=== PATIENT | male | born 1945 | race Caucasian/White ===

== ENCOUNTER → 2018-10-03 14:17 | Outpatient (CLI) | payer OTHER, SELFPAY ==
[2018-10-03 15:03] LABS: Urine Amphetamines Negative (Negative); Urine Barbiturates Negative (Negative); Urine Benzodiazepines Negative (Negative); Urine Cocaine Negative (Negative); Urine MDMA Negative (Negative); Urine Methadone Negative (Negative); Urine Methamphetamines Negative (Negative); Urine Morphine/Opi cutoff 2000 Negative (Negative); Urine Oxycodone Negative (Negative); Urine Phencyclidine Negative (Negative); Urine Tetrahydrocannabinol Positive (Negative); Urine Tricyclic Antidepressant Negative (Negative)
== END ==
PROVIDERS: Visit Provider Psychiatry & Neurology Psychiatry
DX: F10.20 Alcohol dependence, uncomplicated (principal); F12.220 Cannabis dependence with intoxication, uncomplicated; F41.9 Anxiety disorder, unspecified; F90.9 Attention-deficit hyperactivity disorder, unspecified type
CPT/HCPCS: 80305

== ENCOUNTER → 2018-11-03 11:33 | Outpatient (CLI) | payer OTHER, SELFPAY ==
[2018-11-03 13:04] LABS: Urine Amphetamines Negative (Negative); Urine Barbiturates Negative (Negative); Urine Benzodiazepines Negative (Negative); Urine Cocaine Negative (Negative); Urine MDMA Negative (Negative); Urine Methadone Negative (Negative); Urine Methamphetamines Negative (Negative); Urine Morphine/Opi cutoff 2000 Negative (Negative); Urine Oxycodone Negative (Negative); Urine Phencyclidine Negative (Negative); Urine Tetrahydrocannabinol Negative (Negative); Urine Tricyclic Antidepressant Negative (Negative)
== END ==
PROVIDERS: PCP Internal Medicine; Visit Provider Psychiatry & Neurology Psychiatry
DX: F12.20 Cannabis dependence, uncomplicated (principal); F10.20 Alcohol dependence, uncomplicated; F90.9 Attention-deficit hyperactivity disorder, unspecified type
CPT/HCPCS: 80305

== ENCOUNTER → 2018-12-09 14:28 | Outpatient (CLI) | payer OTHER, SELFPAY ==
[2018-12-09 14:59] LABS: Urine Amphetamines Negative (Negative); Urine Barbiturates Negative (Negative); Urine Benzodiazepines Negative (Negative); Urine Cocaine Negative (Negative); Urine MDMA Negative (Negative); Urine Methadone Negative (Negative); Urine Methamphetamines Negative (Negative); Urine Morphine/Opi cutoff 2000 Negative (Negative); Urine Oxycodone Negative (Negative); Urine Phencyclidine Negative (Negative); Urine Tetrahydrocannabinol Negative (Negative); Urine Tricyclic Antidepressant Negative (Negative)
== END ==
PROVIDERS: PCP Internal Medicine; Visit Provider Psychiatry & Neurology Psychiatry
DX: F12.20 Cannabis dependence, uncomplicated (principal); F10.20 Alcohol dependence, uncomplicated; F41.9 Anxiety disorder, unspecified; F90.9 Attention-deficit hyperactivity disorder, unspecified type
CPT/HCPCS: 80305

== ENCOUNTER → 2018-12-23 11:26 | Outpatient (CLI) | payer OTHER, SELFPAY ==
--- NOTE | 2018-12-23 | DI.RAD.S_ITS ---
PROCEDURE: XR CHEST 2V INDICATIONS: CHEST PAIN TECHNIQUE: 2 views of the chest were acquired. COMPARISON: None. FINDINGS: Surgical changes and devices: None. Lungs and pleura: No pleural effusions or pneumothorax. A density projects to the anterior aspect of the left 6 rib at the costochondral junction, probably related to rib injury. A nodular density in the left lower lung zone is probably the nipple shadow. Mediastinum: Mediastinal contours are normal. Heart size is normal. Bones and chest wall: Soft tissues appear unremarkable. IMPRESSION: 1. No acute cardiopulmonary disease. 2. A density projects to the anterior aspect of the left 6 rib at the costochondral junction, probably related to rib injury. Followup exam or a rib series is suggested. Dictated by: Josesito Dumont M.D. on 12/23/2018 at 12:54 Approved by: Josesito Dumont M.D. on 12/23/2018 at 13:03
== END ==
PROVIDERS: PCP Internal Medicine; Visit Provider Internal Medicine
DX: R07.9 Chest pain, unspecified (principal)
CPT/HCPCS: 71046

== ENCOUNTER → 2019-01-27 10:12 | Outpatient (CLI) | payer OTHER, SELFPAY ==
[2019-01-27 11:32] LABS: Urine Amphetamines Negative (Negative); Urine Barbiturates Negative (Negative); Urine Benzodiazepines Negative (Negative); Urine Cocaine Negative (Negative); Urine MDMA Negative (Negative); Urine Methadone Negative (Negative); Urine Methamphetamines Negative (Negative); Urine Morphine/Opi cutoff 2000 Negative (Negative); Urine Oxycodone Negative (Negative); Urine Phencyclidine Negative (Negative); Urine Tetrahydrocannabinol Negative (Negative); Urine Tricyclic Antidepressant Negative (Negative)
== END ==
PROVIDERS: PCP Internal Medicine; Visit Provider Psychiatry & Neurology Psychiatry
DX: F10.20 Alcohol dependence, uncomplicated (principal); F12.20 Cannabis dependence, uncomplicated; F41.9 Anxiety disorder, unspecified; F90.9 Attention-deficit hyperactivity disorder, unspecified type
CPT/HCPCS: 80305

== ENCOUNTER → 2019-03-06 15:46 | Outpatient (CLI) | payer OTHER, SELFPAY ==
[2019-03-06 16:20] LABS: Urine Amphetamines Negative (Negative); Urine Barbiturates Negative (Negative); Urine Benzodiazepines Negative (Negative); Urine MDMA Negative (Negative); Urine Methadone Negative (Negative); Urine Methamphetamines Negative (Negative); Urine Oxycodone Negative (Negative); Urine Phencyclidine Negative (Negative); Urine Tetrahydrocannabinol Negative (Negative); Urine Tricyclic Antidepressant Negative (Negative)
[2019-04-01 16:49] LABS: Urine Cocaine Negative (Negative); Urine Morphine/Opi cutoff 2000 Positive (Negative)
== END ==
PROVIDERS: Visit Provider Psychiatry & Neurology Psychiatry
DX: F41.9 Anxiety disorder, unspecified (principal); F90.9 Attention-deficit hyperactivity disorder, unspecified type; F12.20 Cannabis dependence, uncomplicated; F10.20 Alcohol dependence, uncomplicated
CPT/HCPCS: 80305

== ENCOUNTER → 2019-03-13 14:21 | Outpatient (CLI) | payer OTHER, SELFPAY ==
--- NOTE | 2019-03-13 | DI.RAD.S_ITS ---
PROCEDURE: XR RIBS LT 2V INDICATIONS: CHEST PAIN TECHNIQUE: 3 views of the left ribs were acquired. COMPARISON: [facility], CR, XR CHEST 2V, 12/23/2018, 11:38. FINDINGS: Surgical changes and devices: None evident Bones and chest wall: Nondisplaced left 5, 6, and 7th left rib fractures are evident near the distal margins of the ribs. No additional fractures are appreciated. Incidental note is made of degenerative changes involving the left glenohumeral joint. Degenerative changes of the spine are also present, not well evaluated. No suspicious bony lesions. Overlying soft tissues appear unremarkable. Lungs and pleura: The visualized lung appears clear. No definite pleural effusions or pneumothorax are visible. IMPRESSION: Nondisplaced left 5th through 7th rib fractures. Dictated by: Cristino Montanez M.D. on 03/13/2019 at 16:06 Approved by: Cristino Montanez M.D. on 03/13/2019 at 16:08
== END ==
PROVIDERS: Visit Provider Internal Medicine
DX: R07.9 Chest pain, unspecified (principal); S22.42XA Multiple fractures of ribs, left side, initial encounter for closed fracture
CPT/HCPCS: 71046

== ENCOUNTER → 2020-06-15 14:58 | Outpatient (ROUT) | payer OTHER, SELFPAY ==
[2020-06-15 15:12] LABS: Add Manual Diff / Slide Review NO; Alanine Aminotransferase 23 IU/L (<50); Albumin 4.5 g/dL (3.5-5.0); Albumin Globulin Ratio 1.6 (1.0-2.8); Alkaline Phosphatase 72 U/L (38-126); Aspartate Aminotransferase 34 IU/L (17-59); BUN Creatinine Ratio 20.7 (6-22); Basophils Absolute Auto 100 /uL (0-100); Basophils Percent Auto 0.9 % (0-2); Bilirubin Total 0.6 mg/dL (0.2-1.3); Blood Urea Nitrogen 18 mg/dL (9-20); Carbon Dioxide 28 mmol/L (22-32); Chloride 99 mmol/L (98-107); Cholesterol 211 mg/dL (140-199); Eosinophils Absolute Auto 100 /uL (0-450); Eosinophils Percent Auto 1.3 % (2-4); Estimated Glomerular Filt Rate > 60.0 mL/min (>60); Globulin 2.8 g/dL (1.7-4.1); Glucose 101 mg/dL (80-110); Hematocrit 41.9 % (41-53); Hemoglobin 14.3 g/dL (13.5-17.5); Lymphocytes Absolute Auto 2000 /uL (1100-4500); Lymphocytes Percent Auto 21.3 % (25-40); Magnesium 1.7 mg/dL (1.6-2.3); Mean Corpuscular HGB Conc 34.1 % (30-36); Mean Corpuscular Hemoglobin 33.8 PG (26-34); Monocytes Absolute Auto 500 /uL (0-900); Monocytes Percent Auto 5.2 % (3-14); Neutrophils Absolute Auto 6600 /uL (1500-7000); Neutrophils Percent Auto 71.3 % (50-75); Platelet Count 241 X10^3/uL (150-400); Potassium 4.1 mmol/L (3.4-5.1); Red Blood Cell Count 4.23 X10^6/uL (4.5-5.9); Red Cell Distribution Width 13.7 % (11.6-14.8); Sodium 136 mmol/L (137-145); Total Protein 7.3 g/dL (6.3-8.2); Triglycerides 100 mg/dL (35-150); White Blood Cell Count 9.3 X10^3/uL (4.5-11.0)
[2020-06-15 15:19] LABS: HEMOLYSIS 18 (0-50)
[2020-06-15 15:33] LABS: HDL Cholesterol 122 mg/dL (40-60); LDL Cholesterol Calculated 69 mg/dL (<100)
[2020-06-15 16:18] LABS: Folate > 20.0 ng/mL (2.76-20.0); Vitamin B12 774 pg/mL (239-931)
[2020-06-15 16:22] LABS: TSH w/ Reflex to FT4 2.31 uIU/mL (0.47-4.68)
== END ==
PROVIDERS: Visit Provider Internal Medicine
DX: E83.42 Hypomagnesemia (principal); F10.20 Alcohol dependence, uncomplicated; E78.2 Mixed hyperlipidemia; E53.8 Deficiency of other specified B group vitamins
CPT/HCPCS: 80053; 80061; 82607; 82746; 83735; 84443; 85025

== ENCOUNTER → 2020-10-31 09:23 | Outpatient (CLI) | payer OTHER, SELFPAY ==
--- NOTE | 2020-10-31 | DI.MG.S_ITS ---
MALE BILATERAL DIGITAL DIAGNOSTIC MAMMOGRAM 3D/2D: 10/31/2020 CLINICAL: Right breast lump. No prior exams were available for comparison. There is gynecomastia in both breasts which appears more pronounced on the right. This correlates with area of clinical concern. No significant masses, calcifications, or other findings are seen in either breast. IMPRESSION: BENIGN There is no mammographic evidence of malignancy. Bilateral right greater than left gynecomastia. Recommend clinical follow up for persistent or worsening symptoms, or development of any clinically suspicious findings. Findings and recommendations were conveyed to the patient during today's evaluation. This exam was interpreted at Station ID: [id number]. NOTE: For mammograms, a report in lay terms will be sent to the patient. Approximately 15% of breast malignancies will not be visualized mammographically. In the management of a palpable breast mass, a negative mammogram must not discourage biopsy of a clinically suspicious lesion. Electronically Signed By: Chivo Clayton M.D. aty/:10/31/2020 10:14:35 letter sent: Clinical Evaluation ACR BI-RADS Category 2: Benign Finding(s) 3342F
== END ==
PROVIDERS: PCP Internal Medicine; Referring Provider Internal Medicine; Visit Provider Internal Medicine
DX: N62 Hypertrophy of breast (principal); N63.10 Unspecified lump in the right breast, unspecified quadrant
CPT/HCPCS: 77066; G0279

== ENCOUNTER → 2020-11-11 19:34 | Outpatient (ROUT) | payer OTHER, SELFPAY ==
[2020-11-11 20:05] LABS: Prolactin 9.2 ng/mL (3.7-17.9)
[2020-11-11 20:06] LABS: Follicle Stimulating Hormone 2.41 mIU/mL; Luteinizing Hormone 4.75 mIU/mL
[2020-11-11 20:21] LABS: TSH w/ Reflex to FT4 2.36 uIU/mL (0.47-4.68); Testosterone 348 ng/dL (71.8-623)
== END ==
PROVIDERS: PCP Internal Medicine; Visit Provider Internal Medicine
DX: E29.1 Testicular hypofunction (principal)
CPT/HCPCS: 83001; 83002; 84146; 84403; 84443

== ENCOUNTER → 2020-11-26 09:03 | Outpatient (CLI) | payer OTHER, SELFPAY ==
--- NOTE | 2020-11-26 | DI.RAD.S_ITS ---
PROCEDURE: XR LUMBAR SPINE 2-3V INDICATIONS: LOW BACK PAIN TECHNIQUE: 3 views of the lumbar spine were acquired. COMPARISON: None. FINDINGS: Bones: 5 [id number] vertebrae are present. Mild dextroconvex scoliotic curvature is seen. No focal AP alignment abnormality is seen. No vertebral body compression fractures. No suspicious bony lesions. There is moderate disc space narrowing seen at L5-S1. The disc heights otherwise appear well-preserved. Lower lumbar spine facet arthropathy is seen. Soft tissues: Overlying bowel gas pattern is normal. No suspicious soft tissue calcifications. IMPRESSION: Focal L5-S1 degenerative change is seen. Mild dextroconvex lumbar scoliotic curvature. Dictated by: William Reese M.D. on 11/26/2020 at 8:28 Approved by: William Reese M.D. on 11/26/2020 at 8:29
== END ==
PROVIDERS: PCP Internal Medicine; Referring Provider Student in an Organized Health Care Education/Training Program; Visit Provider Student in an Organized Health Care Education/Training Program
DX: M54.5 Low back pain (principal); M47.817 Spondylosis without myelopathy or radiculopathy, lumbosacral region; M41.86 Other forms of scoliosis, lumbar region
CPT/HCPCS: 72100

== ENCOUNTER → 2020-12-27 19:07 | Outpatient (ROUT) | payer OTHER, SELFPAY ==
[2020-12-27 20:28] LABS: Alanine Aminotransferase 16 IU/L (<50); Albumin 4.3 g/dL (3.5-5.0); Albumin Globulin Ratio 1.4 (1.0-2.8); Alkaline Phosphatase 82 U/L (38-126); Aspartate Aminotransferase 22 IU/L (17-59); BUN Creatinine Ratio 16.7 (6-22); Bilirubin Total 0.5 mg/dL (0.2-1.3); Blood Urea Nitrogen 16 mg/dL (9-20); Calcium 9.9 mg/dL (8.4-10.2); Carbon Dioxide 32 mmol/L (22-32); Chloride 100 mmol/L (98-107); Estimated Glomerular Filt Rate > 60.0 mL/min (>60); Globulin 3.1 g/dL (1.7-4.1); Glucose 94 mg/dL (80-110); HEMOLYSIS < 15 (0-50); Potassium 3.7 mmol/L (3.4-5.1); Sodium 138 mmol/L (137-145); Total Protein 7.4 g/dL (6.3-8.2)
[2020-12-27 20:32] LABS: Add Manual Diff / Slide Review NO; Basophils Absolute Auto 100 /uL (0-100); Basophils Percent Auto 1.2 % (0-2); Eosinophils Absolute Auto 400 /uL (0-450); Eosinophils Percent Auto 4.3 % (2-4); Hematocrit 41.6 % (41-53); Hemoglobin 13.6 g/dL (13.5-17.5); Lymphocytes Absolute Auto 2800 /uL (1100-4500); Lymphocytes Percent Auto 32.1 % (25-40); Mean Corpuscular HGB Conc 32.8 % (30-36); Mean Corpuscular Hemoglobin 31.9 PG (26-34); Mean Corpuscular Volume 97.3 fL (80-100); Monocytes Absolute Auto 700 /uL (0-900); Monocytes Percent Auto 7.6 % (3-14); Neutrophils Absolute Auto 4700 /uL (1500-7000); Neutrophils Percent Auto 54.8 % (50-75); Platelet Count 270 X10^3/uL (150-400); Red Blood Cell Count 4.28 X10^6/uL (4.5-5.9); Red Cell Distribution Width 13.2 % (11.6-14.8); White Blood Cell Count 8.6 X10^3/uL (4.5-11.0)
[2020-12-27 20:56] LABS: TSH w/ Reflex to FT4 3.52 uIU/mL (0.47-4.68)
[2020-12-29 06:04] LABS: Alpha Fetoprotein 2.3 ng/mL (0.0-8.3); Cancer (Carbohydrate) Ag 19-9 13 U/mL (0-35)
== END ==
PROVIDERS: PCP Internal Medicine; Visit Provider Internal Medicine
DX: K74.60 Unspecified cirrhosis of liver (principal)
CPT/HCPCS: 80053; 82105; 84443; 85025; 86301

== ENCOUNTER → 2020-12-29 10:11 | Outpatient (CLI) | payer OTHER, SELFPAY ==
--- NOTE | 2020-12-29 | DI.RAD.S_ITS ---
PROCEDURE: FL UPPER GI SERIES INDICATIONS: DYSPHAGIA COMPARISON: None. FINDINGS: KUB: Preprocedural synthetic soil blocks pulper film demonstrates a normal bowel gas pattern. No suspicious abdominal calcifications. Visualized solid organ contours appear normal. Bony structures appear unremarkable. Esophagus: Esophageal mucosa is normal on air-contrast views. On single-contrast views, there is severe esophageal dysmotility No strictures, extrinsic mass effects, or diverticula. No hiatal hernia . There is gastroesophageal reflux to the level of the mid esophagus. Stomach: The stomach is normally distensible, with normal rugal fold thickness. No mucosal masses or ulcers. Pylorus and duodenal bulb appear normal in morphology. Duodenal folds are normal in thickness as well. IMPRESSION: Esophageal dysmotility Gastroesophageal reflux to the level of the mid esophagus Dictated by: Rubén Kuhn M.D. on 12/29/2020 at 11:44 Approved by: Rubén Kuhn M.D. on 12/29/2020 at 11:46
== END ==
PROVIDERS: PCP Internal Medicine; Referring Provider Internal Medicine; Visit Provider Internal Medicine
DX: R13.10 Dysphagia, unspecified (principal); K22.4 Dyskinesia of esophagus; K21.9 Gastro-esophageal reflux disease without esophagitis
CPT/HCPCS: 74240

== ENCOUNTER → 2021-01-18 13:17 | Outpatient (CLI) | payer OTHER, SELFPAY ==
[2021-01-18 14:43] LABS: BUN Creatinine Ratio 15.1 (6-22); Blood Urea Nitrogen 13 mg/dL (9-20); Calcium 9.4 mg/dL (8.4-10.2); Carbon Dioxide 30 mmol/L (22-32); Chloride 100 mmol/L (98-107); Estimated Glomerular Filt Rate > 60.0 mL/min (>60); Glucose 107 mg/dL (80-110); HEMOLYSIS < 15 (0-50); Potassium 3.8 mmol/L (3.4-5.1); Sodium 136 mmol/L (137-145)
== END ==
PROVIDERS: PCP Internal Medicine; Referring Provider Internal Medicine; Visit Provider Internal Medicine
DX: I10 Essential (primary) hypertension (principal)
CPT/HCPCS: 36415; 80048

== ENCOUNTER → 2021-01-19 07:59 | Outpatient (CLI) | payer OTHER, SELFPAY ==
--- NOTE | 2021-01-19 09:49 | DI.CT.S_ITS ---
PROCEDURE: CT ABDOMEN PELVIS W CON INDICATIONS: CIRRHOSIS OF LIVER, UNSPECIFIED. TECHNIQUE: After the administration of oral and intravenous contrast, 5 mm thick sections acquired from the diaphragms to the symphysis. 5 mm thick coronal and sagittal reformats were performed. For radiation dose reduction, the following was used: automated exposure control, adjustment of mA and/or kV according to patient size. COMPARISON: [facility], RF, [place] UPPER GI SERIES, 12/29/2020, 11:24. [facility], CR, XR LUMBAR SPINE 2-3V, 11/26/2020, 9:05. FINDINGS: Image quality: Excellent. ABDOMEN: Lung bases: Lung bases are clear. Heart size is normal. Solid organs: The liver has an irregular contour suggestive of cirrhosis. The gallbladder is normal with no stones, wall thickening, or pericholecystic fluid. The spleen is normal. Both adrenal glands have a normal size and appearance with no nodules. The kidneys demonstrate no solid or cystic mass. There is no hydronephrosis or nephroureteral calculi. The bladder is distended with diffuse wall thickening. There is a enlarged prostate with calcifications which either bulges into the posterior wall of the bladder or there is a separate bladder mass. Cystoscopy is recommended. Peritoneum and bowel: The distal esophagus, stomach and small bowel have a normal appearance. The large bowel demonstrates diverticulosis without evidence of diverticulitis. The appendix is normal. Nodes and vessels: No retroperitoneal or mesenteric adenopathy. Aorta and inferior vena cava are normal in caliber. Miscellaneous: No ventral hernias. PELVIS: Genitourinary: The bladder wall is thickened measuring up to 5 mm. A 6 x 4 cm fluid collection posterior to the bladder is seen, probably a bladder diverticulum. As described above there is an enlarged prostate which bulges into the posterior bladder, however given the CT appearance, a bladder wall mass should also be considered. Cystoscopy is recommended. Miscellaneous: No inguinal hernias or adenopathy. Bones: There is a compression fracture of T12 with approximately 20% anterior height loss with multiple fracture lines extending to the cortex, however the middle and posterior columns are intact. There is degenerative disc disease with intradiscal gas at L5-S1. Multilevel disc bulges are seen with disc osteophytes at L4-5 and L5-S1. There is sclerosis present within the IMPRESSION: 1. No acute intra-abdominal or pelvic abnormality. 2. Compression fracture of T12 with components of burst fracture but primarily anterior height loss appears subacute. MRI could be performed for further evaluation. There is 2 mm retropulsion causing mild central canal stenosis. 3. Possible bladder mass versus prostate protruding into the posterior bladder wall. Recommend cystoscopy. 4. Bladder wall thickening, probably related to chronic urine outlet obstruction. 5. Cirrhosis 6. Diverticulosis without evidence of diverticulitis 7. Bladder diverticulum. Dictated by: Sonny Wood M.D. on 01/19/2021 at 9:22 Approved by: Sonny Wood M.D. on 01/19/2021 at 10:35
== END ==
PROVIDERS: PCP Internal Medicine; Referring Provider Internal Medicine; Visit Provider Internal Medicine
DX: K74.60 Unspecified cirrhosis of liver (principal); K57.30 Diverticulosis of large intestine without perforation or abscess without bleeding; M48.54XA Collapsed vertebra, not elsewhere classified, thoracic region, initial encounter for fracture; N32.3 Diverticulum of bladder; M51.37 Other intervertebral disc degeneration, lumbosacral region
CPT/HCPCS: 74177; Q9967

== ENCOUNTER → 2021-01-23 19:51 | Outpatient (ROUT) | payer OTHER, SELFPAY ==
[2021-01-23 20:11] LABS: Prothrombin Time 11.1 SECONDS (10.1-12.7)
[2021-01-23 20:14] LABS: PTT Partial Thromboplastin Tim 33 SECONDS (26.4-36.2)
== END ==
PROVIDERS: PCP Internal Medicine; Visit Provider Internal Medicine
DX: N40.1 Benign prostatic hyperplasia with lower urinary tract symptoms (principal)
CPT/HCPCS: 84153; 85610; 85730

== ENCOUNTER → 2021-06-30 08:08 | Outpatient (CLI) | payer OTHER, SELFPAY ==
[2021-06-30 10:00] LABS: COVID19 -Nasal RAPID Negative (Negative)
== END ==
PROVIDERS: PCP Internal Medicine; Visit Provider Specialist
DX: Z20.822 Contact with and (suspected) exposure to COVID-19 (principal)
CPT/HCPCS: 87635

== ENCOUNTER 2021-07-03 06:28 | Observation (INO) | payer OTHER, SELFPAY ==
[2021-06-27 15:21] VITALS: BMI 22.2
[2021-07-03] VITALS (17 sets, daily range): BP systolic 101–189; BP diastolic 41–89; PULSE 69–103; RESP 12–20; TEMP 35.9–38.4; O2SAT 90–100; BMI 22.2
--- NOTE | 2021-07-03 | PATH_ITS ---
[facility] Accession Number: [id number] . 01 Material submitted: . prostate - PROSTATE CHIPS . 01 Clinical history: . *OPB* . 02 Diagnosis: Prostate Chips, Transurethral Resection: Benign prostatic glands and stroma with nodular hyperplasia. No evidence of neoplasm. V 07/05/2021 1411 Local . 02 Electronically signed: . Elyssa Sepulveda MD, Pathologist NPI- [id number] . 01 Gross description: . The specimen is received in formalin, labeled prostate chips and consists of multiple irregular garcia fragments of soft tissue weighing 11 grams and measuring 7.0 x 5.0 x 2.6 cm in aggregate. The specimen is entirely submitted in cassettes A1-A7. ([id number]) /V 07/04/2021 1121 Local . 02 Pathologist provided ICD-10: N40.1 . 02 CPT . 616244 Performed at: 01 [facility] [address], [place], [place] [id number] MD Cristino Rodriguez MD Phone: [phone] Performed at: 02 [facility] [address] [place], [place] [id number] MD Elyssa Sepulveda MD Phone: [phone]
--- NOTE | 2021-07-03 07:15 | PM.PREOP ---
Pre-operative Note Interval Note History & Physical reviewed/Exam performed by Physician: Yes Changes to H&P: No
--- NOTE | 2021-07-03 07:19 | P.HP_ITS ---
History of Present Illness History of Present Illness Date Patient Seen: 07/03/21 Time Patient Seen: 07:19 Chief complaint: *OPB* $360 copay Narrative: Abe is a 76-year-old white male presenting today for schedule transurethral resection of prostate for elevated residual volume of approximately 360 cc. He has a history of BPH and a history of urinary retention. In the early he had residual volume as high as 1 L. He underwent photo vaporization of the prostate in 2004. CT scan contrast 01/19/2021 demonstrated a right posterior bladder wall diverticulum and questionable mass to the left of midline. Postvoid residual volume 1. Was 360 cc. He then return for lower tract endoscopy with findings consistent with obstructing lateral lobe prostatic regrowth and a horizontal oriented bladder neck contracture. The bladder showed severe trabeculation and a moderate sized right posterior lateral wall diverticulum. Postvoid residual volume 2. Was 324 cc. PSA 01/23/2021, was 1.6. Options were reviewed at length and in detail. The patient is troubled by double and triple voiding every morning to feel as though he is somewhat empty. He actually feels as though he is empty with residual volume in excess of 300 cc. Rationale and indications for relief of bladder outlet obstruction or reviewed. Methodology for reviewed. Discussion of the common side effects, possible complications, perioperative limitations/restrictions, and reasonable e xpectations of outcomes and recovery following transurethral resection of prostate were explained. The patient has chosen to proceed and presents today for same. Patient History Medical History (Updated 05/16/21 @ 11:07 by Mao Hernandez MD) Bladder diverticulum BPH w urinary obs/LUTS History of urinary retention Incomplete bladder emptying Neoplasm of uncertain behavior of bladder Surgical History (Updated 06/28/21 @ 07:42 by Petty Moreira RN) H/O hernia repair H/O transurethral resection of prostate History of photovaporization of prostate (2004) Hx of cystoscopy (05/16/21) Family & Social History Family History Father Cancer Social History: household members spouse Tobacco & Substance use: Smoking Status Former smoker alcohol intake current alcohol intake frequency 3 or more drinks per day Substance Use Type marijuana Meds Home Medications and Allergies Home Medications Medication Instructions Recorded Confirmed Type alprazolam 0.5 mg tablet,extended 0.5 mg PO DAILY 04/25/21 07/03/21 History release 24 hr (Xanax XR) hydrochlorothiazide 12.5 mg capsule 12.5 mg PO DAILY 04/25/21 07/03/21 History propranolol 10 mg tablet 10 mg PO BID 04/25/21 07/03/21 History hydrocodone 5 mg-acetaminophen 325 1 tab PO Q6HP PRN 06/27/21 07/03/21 History mg tablet Allergies Allergy/AdvReac Type Severity Reaction Status Date / Time bupropion AdvReac Hypertensio Verified 07/03/21 06:59 n Exam Vital Signs (past 8 hours): - 07/03/21 07:07 Temperature 98.2 F Pulse Rate 69 Respiratory Rate 15 Blood Pressure 157/84 H Pulse Oximetry 100 Oxygen Delivery Method Room Air Narrative Exam Narrative: He is a well-developed and well-nourished male in no acute distress. Head/neck-sclera clear and pupils are round and equal bilaterally. No evidence of adenopathy or JVD. Chest-equal, clear, nonlabored expansion bilaterally. Heart-normal sinus rhythm. No abnormal heart tones appreciated. Assessment & Plan Assessment & Plan narrative: Assessment: 1. Bladder outlet obstruction due to prostate. 2. Urinary retention. Plan: 1. Proceed with transurethral resection of prostate.
[2021-07-03] MEDS: LACTATED RINGERS 1,000 ML 42 ML IV ×2 (07:20→09:35)
[2021-07-03] MEDS: GABAPENTIN 300 MG CAPSULE PO (07:25)
[2021-07-03] MEDS: ACETAMINOPHEN 325 MG TABLET 975 MG PO (07:25)
[2021-07-03] MEDS: CEFAZOLIN 1 GM VIAL 2 GM IV (08:15)
--- NOTE | 2021-07-03 08:26 | SUR.OPER ---
Lithotomy on padded OR bed, head on pillow, arms secured on padded arm boards at <90 degrees abduction. Legs secured in padded yellow fins stirrups.
[2021-07-03] MEDS: BELLADONNA/OPIUM SUPPOSITORIES 1 EACH PR (08:37)
--- NOTE | 2021-07-03 09:41 | P.OP_ITS ---
Operative Date/Time/Diagnoses Date of procedure: 07/03/21 Time of procedure: 09:41 Pre-op diagnosis: 1. Urinary retention Post-op diagnosis: same Procedure & Clinicians Procedure: 1. Transurethral resection of prostate Same procedure as scheduled: Yes Indications: 1. Urinary retention. Surgeon: Mao Hernandez Click Yes if Unassisted: Yes Anesthesia Type: General and Spinal Operative Notes Findings: 1. Urethra-normal caliber without annular stricture or lesion. 2. External sphincter coapted with normal overlying urothelium. 3. Prostate-5+ cm length with obstructing trilobar hyperplasia and elevated median bar. 4. Bladder-1 to 2+ trabeculation. Moderate sized diverticulum at right posterior lateral wall. Closure Type: not applicable Specimen(s): other (TUR prostate chips) Applied: catheter (Number [address] hematuria catheter) Estimated Blood Loss (mL): 25 Blood products transfused: none Tourniquet time (min): 0 Procedure in detail: The patient was positioned in supine was administered general anesthesia following placement of spinal anesthesia. He was then repositioned in semi lithotomy and the lower abdomen, genitalia, and groin were prepped and draped in sterile fashion. The 25 Cameroonian resectoscope was then advanced lower urinary tract under direct visualization with the findings as described above. The sheath was then fitted with the working element. TUR incisions were then made at the 11 and 1:00 a.m. positions to the surgical capsule. The intervening anterior tissue was then resected. Next, the left and right lateral lobes were successively resected. Finally, the median bar and lobe for resected from bladder neck to verumontanum. At no point was resection taken more distal than the verumontanum. At no point was resection taken beyond the surgical capsule. All chips were then irrigated free from the bladder with the Ellick evacuator. The bladder was then left partially filled and a 24 Cameroonian, 3 way hematuria catheter was passed lower urinary tract. The balloon was it plated to 45 cc. Gentle traction was then applied and the catheter was hand irrigated to clear. It was then attached to normal saline continuous bladder irrigation with nearly clear outflow. Just very lightly pink tinged. The patient was then repositioned in supine, was awakened, and transferred to [facility] for transfer to PACU. Complications: none Post-operative Condition: stable Disposition: PACU Plan for aftercare: Admit outpatient with the bed.
[2021-07-03] MEDS: OXYCODONE IR 5 MG TABLET PO (10:07)
--- NOTE | 2021-07-03 10:10 | SUR.PHASEI ---
Addendum entered by Nori De Dios R.N. 07/03/21 10:19: Received to PACU after general/spinal anesthesia. Report received from [facility] Ha and Dr Brown. Original Note: Received to PACU after general/spinal anesthesia. Report received from [facility] Ha and Dr Brown. No magnet used on pacemaker in the OR per Dr Brown.
--- NOTE | 2021-07-03 10:25 | SUR.PHASEI ---
Report called to [facility]. Pt transferred to 213 with belongings bag, glasses on, and bilat hearing aids in.
[2021-07-03] MEDS: LACTATED RINGERS 1,000 ML 125 ML IV ×2 (10:45→20:35)
--- NOTE | 2021-07-03 12:58 | PC.NURSE ---
Patient arrived from PACU brought up by 2 [employer]'s to room 213. Continuos bladder irrigation in progress upon arrival, urine is light pink without clots noted. Patient denies pain, awakes easily, and answering questions. Patient arrived incontinent of liquid brown stool, cleaned up and brief applied and then had another incontinent stool episode while retching. Patient having intermittent retching, with foamy mucous. Oriented to room and call light with call light within reach, bed alarm active for safety. Attempted to reach Dr. Hernandez x 3, as patient's has questions and concerns and states she did not get a call from the doctor. Also need further clarification of orders for CIWA per protocol (drinks 3 or more alcoholic drinks per day), bladder irrigation and nausea medications. Will continue to follow.
[2021-07-03] MEDS: ONDANSETRON 4 MG ODT SL (14:51)
[2021-07-03] MEDS: ACETAMINOPHEN 325 MG TABLET 650 MG PO (20:34)
[2021-07-04 00:10] VITALS: BP 101/47; PULSE 90; RESP 22; TEMP 37.2; O2SAT 97
[2021-07-04 03:14] VITALS: BP 107/50; PULSE 88; RESP 14; TEMP 36.8; O2SAT 97
[2021-07-04] MEDS: LACTATED RINGERS 1,000 ML 125 ML IV (03:14)
--- NOTE | 2021-07-04 07:18 | PM.PN.1 ---
Subjective Subjective Date Patient Seen: 07/04/21 Time Patient Seen: 07:18 Interval history: The patient is postoperative day 1 status post transurethral resection of the prostate. He experienced some nausea and hyper salivation in the postoperative. That was remedied with sublingual Zofran. He has had no nausea. He is passing gas. He had 2 soft bowel movements yesterday. Denies pain. Exam Vital Signs (past 8 hours): - 07/04/21 00:10 07/04/21 03:14 Temperature 98.9 F 98.3 F Pulse Rate 90 88 Respiratory Rate 22 14 Blood Pressure 101/47 L 107/50 L Pulse Oximetry 97 97 Oxygen Delivery Method Nasal Cannula Oxygen Flow Rate 0 Narrative Exam Narrative: Patient is sitting upright in bed in no distress drinking water. Chest-equal and unlabored expansion bilaterally. Heart-normal sinus rhythm. Clark-nearly clear outflow at modest drip rate. No clots. PFSH Medical History Bladder diverticulum BPH w urinary obs/LUTS History of urinary retention Incomplete bladder emptying Neoplasm of uncertain behavior of bladder Surgical History H/O hernia repair H/O transurethral resection of prostate History of photovaporization of prostate (2004) Hx of cystoscopy (05/16/21) Family History Father Cancer Social History marital status: number of children: 2 household members: spouse Smoking Status: Former smoker Tobacco: How many years used: 15 alcohol intake: current caffeine: Yes Assessment & Plan Assessment & Plan narrative: Assessment: 1. Stable postop day 1. Status post TURP. Plan: 1. Plug 3 way Clark catheter inflow. 2. Ambulate. 3. Encourage copious p.o. free water and fluids. 4. Pathology [id number] with patient when report final.
[2021-07-04 08:00] VITALS: BP 147/60; PULSE 87; RESP 20; TEMP 36.6; O2SAT 95
[2021-07-04] MEDS: ACETAMINOPHEN 325 MG TABLET 650 MG PO (08:20)
[2021-07-04] MEDS: hydroCHLOROthiazide 25 MG TABLET 12.5 MG PO (08:21)
[2021-07-04] MEDS: PROPRANOLOL 10 MG TABLET PO (08:21)
--- NOTE | 2021-07-04 11:24 | PC.NURSE ---
Assisted primary RN with medication pass this morning. Patient declined alprazolam, stating he doesn't take it very often and did not need it this morning. Patient assisted up to chair, denies pain, call light within reach. Clark is in place and intact at this time, draining light pink urine.
--- NOTE | 2021-07-04 11:27 | PC.NURSE ---
Patients irrigation stopped and perez site plugged, he is up to the chair with min assist. Urine is yellow with good output. Patient is heplocked. Leg bag teaching will be initiated and states that he will be back this afternoon.
[2021-07-04 12:00] VITALS: BP 106/53; PULSE 71; RESP 20; TEMP 36.7; O2SAT 96
--- NOTE | 2021-07-04 13:51 | P.DS_ITS ---
History of Present Illness History of Present Illness Date Patient Seen: 07/04/21 Time Patient Seen: 13:51 Chief complaint: *OPB* $360 copay Narrative: Abe is a 76-year-old white male presenting today for schedule transurethral resection of prostate for elevated residual volume of approximately 360 cc. He has a history of BPH and a history of urinary retention. In the early he had residual volume as high as 1 L. He underwent photo vaporization of the prostate in 2004. CT scan contrast 01/19/2021 demonstrated a right posterior bladder wall diverticulum and questionable mass to the left of midline. Postvoid residual volume 1. Was 360 cc. He then return for lower tract endoscopy with findings consistent with obstructing lateral lobe prostatic regrowth and a horizontal oriented bladder neck contracture. The bladder showed severe trabeculation and a moderate sized right posterior lateral wall diverticulum. Postvoid residual volume 2. Was 324 cc. PSA 01/23/2021, was 1.6. Options were reviewed at length and in detail. The patient is troubled by double and triple voiding every morning to feel as though he is somewhat empty. He actually feels as though he is empty with residual volume in excess of 300 cc. Rationale and indications for relief of bladder outlet obstruction or reviewed. Methodology for reviewed. Discussion of the common side effects, possible complications, perioperative limitations/restrictions, and reasonable e xpectations of outcomes and recovery following transurethral resection of prostate were explained. The patient has chosen to proceed and presents today for same. Discharge Providers Provider Date of admission: 07/03/21 06:28 Discharge Date: 07/04/21 Primary care physician: Adam Spears MD Discharge provider: Mao Hernandez MD Summary Hospital Course Discharge Diagnosis: 1. Urinary retention. Hospital Course: Patient was admitted on the morning of 07/03/2021 and underwent uncomplicated TURP and combined general and spinal anesthetic. His postoperative course was essentially unremarkable in that he had no specific iss ues with postoperative pain management, was able to tolerated general diet, and had return of bowel function beginning the night immediately postoperative. The morning of postop day 1. He was able to ambulate without assistance. Following discontinuation of normal saline continuous bladder irrigation and IV fluids he is able to maintain a light discoloration of the urine outflow without developm ent of clots. On the afternoon of 07/04/2021 he is stable for discharge. Pathology is pending at discharge. Exam Vital Signs (past 8 hours): - 07/04/21 08:00 07/04/21 12:00 Temperature 97.8 F 98.1 F Pulse Rate 87 71 Respiratory Rate 20 20 Blood Pressure 147/60 H 106/53 L Pulse Oximetry 95 96 Oxygen Delivery Method Nasal Cannula Oxygen Flow Rate 0 Narrative Exam Narrative: The patient is sitting upright in bedside chair anticipating lunch that was just served. He denies new complaints. Chest-equal and unlabored expansion bilaterally. Heart-normal sinus rhythm. Abdomen-nondistended and nontender. Clark-light pink to light maroon outflow without clot. [facility] Medical History Bladder diverticulum BPH w urinary obs/LUTS History of urinary retention Incomplete bladder emptying Neoplasm of uncertain behavior of bladder Surgical History H/O hernia repair H/O transurethral resection of prostate History of photovaporization of prostate (2004) Hx of cystoscopy (05/16/21) Family History Father Cancer Social History marital status: number of children: 2 household members: spouse Smoking Status: Former smoker Tobacco: How many years used: 15 alcohol intake: current caffeine: Yes Discharge Assessment & Plan Assessment and Plan Assessment: Assessment: 1. Stable postop day 1. Status post transurethral resection of prostate. 2. Pathology pending. Plan: 1. Discharge home today with indwelling Clark catheter. 2. Will schedule outpatient voiding trial in approximately 2 days. 3. Rx Bactrim single strength. 4. Pathology pending. We will follow up with patient in outpatient setting when report final. Discharge Plan Discharge Plan Patient Disposition: Home Provider Discharge Comment: Contact [facility] 07/05/2021 to schedule outpatient follow-up. Discharge orders & Medications Prescriptions: New sulfamethoxazole-trimethoprim [Bactrim] 400-80 mg tablet 1 tab PO BID Qty: 10 RF: 0 Continued hydrocodone-acetaminophen 5 MG/325 MG tablet 1 tab PO Q6HP PRN (Reason: Pain) RF: 0 hydrochlorothiazide 12.5 mg capsule 12.5 mg PO DAILY RF: 0 propranolol 10 mg tablet 10 mg PO BID RF: 0 alprazolam [Xanax XR] 0.5 mg tablet extended release 24 hr 0.5 mg PO DAILY RF: 0 Follow up/Referrals: Adam Spears MD [Primary Care Provider] - Discharge Health Status Multidrug resistant organism: No MDRO Diet/Activity/Treatments Diet: Diet as Tolerated Activity: No lifting greater than 15 lb x 4 weeks. Catheter: 2-way Clark Catheter comment: Large bag-use within home and at night. Leg bag-use when out of home. Skin/Wound/Dressing Care Report to your healthcare provider any signs of infection, such as:: chills, fever, increased pain and unusual drainage Visit Report/Discharge Packet Instructions: How to Care for Your Clark Catheter -- Male, DI for Transurethral Resection of the Prostate, DI for Prescription Opioid Use Stand Alone Forms: Surgery Discharge Discharge Data Primary Care Provider: Adam Spears V Attending Provider: Mao Hernandez
--- NOTE | 2021-07-04 16:29 | CM.DANOTE ---
DCP/Assessment: Reviewed chart. Patient is a 76yr old male admitted to [facility] for elective transurethral resection of prostate. PCP is Dr. Spears. Primary payor is 1)[employer]. Attempted to meet with patient this afternoon but patient has already discharged without any d/c planning needs. P: Home today. FABIANO Rosario
== END 2021-07-04 14:20 | disposition home or self-care (01) ==
LOC: OR 06:28 → AC 06:29
PROVIDERS: Admitting Provider Specialist; PCP Internal Medicine; Referring Provider Specialist; Visit Provider Specialist
PROC: 0VT08ZZ Resection of Prostate, Via Natural or Artificial Opening Endoscopic (ICD-10-PCS; CPT 52601; principal; 2021-07-03 07:45)
DX: N40.1 Benign prostatic hyperplasia with lower urinary tract symptoms (principal); R33.8 Other retention of urine; N32.3 Diverticulum of bladder; R11.0 Nausea
CPT/HCPCS: 52630; 82962; 87086; G0378; J0690; J2250; J2704; J3010

== ENCOUNTER 2021-07-09 01:12 | Emergency (ER) | payer OTHER, SELFPAY ==
[2021-07-06 16:27] VITALS: BMI 22.2
[2021-07-09] VITALS (7 sets, daily range): BP systolic 146–209; BP diastolic 78–88; PULSE 83–85; RESP 16; TEMP 36.7; O2SAT 93–99; BMI 22.9
--- NOTE | 2021-07-09 01:27 | ED_ITS ---
HPI - Male Genitourinary General Chief complaint: Urogenital-Male Stated complaint: Aidan has blood in it-TURP 7days ago Time Seen by Provider: 07/09/21 01:18 Source: patient Mode of arrival: Ambulatory Limitations: no limitations History of Present Illness HPI Narrative: This is a 76-year-old male who comes emergency department with complaint of hematuria. Patient also noted does not feel like he is completely emptying his bladder. Patient did have his 2nd TURP 6 days ago. He had a prior for enlarged prostate several years ago which was with a laser. This 1 was last Saturday and was mechanical with Dr. Hernandez. Patient states he has been told he has had some retention up to 300+ mL in the past. He states he has some mild discomfort but is not particularly painful. He has not had any fevers. No nausea or vomiting. No back or flank pain. He has not had any constipation and has been stooling regularly. Patient has noticed that his stream has been intermittent he has had difficulty and being at times and other times easily drains. He noticed some strawberry colored urine earlier today. He has not noticed any clots. Patient is not on any anticoagulants. He has been taking Bactrim as prescribed by Dr. Hernandez postop. He does take hydrochlorothiazide as well as propranolol daily. Patient is a former smoker, occasional alcohol, no illicit other than occasional THC. He is hypertensive in the department and states that he is typically elevated in a health care setting. Related Data Home Medications Medication Instructions Recorded Confirmed alprazolam 0.5 mg tablet,extended 0.5 mg PO DAILY 04/25/21 07/06/21 release 24 hr (Xanax XR) hydrochlorothiazide 12.5 mg capsule 12.5 mg PO DAILY 04/25/21 07/06/21 propranolol 10 mg tablet 10 mg PO BID 04/25/21 07/06/21 hydrocodone 5 mg-acetaminophen 325 1 tab PO Q6HP PRN 06/27/21 07/06/21 mg tablet Previous Rx's Medication Instructions Recorded sulfamethoxazole 400 1 tab PO BID #10 tab 07/04/21 mg-trimethoprim 80 mg tablet (Bactrim) sulfamethoxazole 800 1 tab PO Q12H #10 tab 07/09/21 mg-trimethoprim 160 mg tablet (Bactrim DS) Allergies Allergy/AdvReac Type Severity Reaction Status Date / Time bupropion AdvReac Hypertensio Verified 07/06/21 16:28 n Review of Systems Review of Systems ROS Unobtainable: All systems reviewed & are unremarkable except as noted in HPI and below Patient History Medical History Bladder diverticulum BPH w urinary obs/LUTS History of urinary retention Incomplete bladder emptying Neoplasm of uncertain behavior of bladder Surgical History H/O hernia repair H/O transurethral resection of prostate History of photovaporization of prostate (2004) Hx of cystoscopy (05/16/21) Family History Father Cancer Social History marital status: number of children: 2 household members: spouse Smoking Status: Former smoker Tobacco: How many years used: 15 alcohol intake: current caffeine: Yes Smoking Status: Former smoker alcohol intake frequency: 0-2 drinks per day Substance Use Type: marijuana Exam Narrative Exam Narrative: GENERAL: Alert and oriented x three, male in mild distress. HEENT: Head normocephalic, atraumatic, EOMI, pupils reactive, face symmetric, moist mucous membranes NECK: Supple, full range of motion CARDIOVASCULAR: Regular rate and rhythm without murmurs, rubs or gallops. RESPIRATORY: Breath sounds equal bilaterally, no wheezes rales or rhonchi. ABDOMEN: Soft, nontender. Normoactive bowel sounds all 4 quadrants. No guarding or rebound, rigidity, no mass, lower abdomen is distended and feels full patient has nontender. Clark catheter was placed and on recheck drained approximately 1 L dark bloody urine. : No CVA tenderness EXTREMITIES: Normal range of motion, no clubbing or edema. Neurovascularly intact NEUROLOGICAL: Cranial nerves II through XII grossly intact. Moving all extremities SKIN: Warm, dry, no petechiae, no rashes or lesions. Initial Vital Signs Initial Vital Signs: Vital Signs Temperature 98.1 F 07/09/21 01:21 Pulse Rate 85 07/09/21 01:21 Respiratory Rate 16 07/09/21 01:21 Blood Pressure 209/78 H 07/09/21 01:21 Pulse Oximetry 98 07/09/21 01:21 Course Orders Ordered: ED Orders 07/09/21 01:50 Urinalysis and Microscopic Stat 07/09/21 01:55 Basic Metabolic Panel Stat Complete Blood Count AUTO DIFF Stat 07/09/21 02:15 CT kidney ureter bladder (KUB) Stat Discontinued Medications Lidocaine HCl (Lidocaine 2% (Glydo) 6 Ml Gel) 6 ml TOP NOW ONE Stop: 07/09/21 01:28 Last Admin: 07/09/21 02:05 Dose: 6 ml Documented by: BHARGAV Consultations Consultation #1: David, patient has follow-up Saturday. No Flomax, continue Sept for 5 additional days. Reviews patient's decrease in hemoglobin, his bump in creatinine as well as CT findings and urinalysis shows RBCs but no obvious signs of infection although CT does show significant bladder wall thickening and a name dilated left renal pelvis and moderate hydroureter. Vital Signs Vital signs: Vital Signs - 8 hr 07/09/21 01:21 07/09/21 01:32 07/09/21 01:34 Temperature 98.1 F Pulse Rate 85 84 83 Respiratory Rate 16 Blood Pressure 209/78 H Pulse Oximetry 98 99 99 07/09/21 01:45 07/09/21 02:00 07/09/21 02:15 Temperature Pulse Rate Respiratory Rate Blood Pressure 163/81 H 146/88 H 149/88 H Pulse Oximetry 07/09/21 03:48 Temperature Pulse Rate Respiratory Rate Blood Pressure 155/83 H Pulse Oximetry 93 MDM - Male Genitourinary Lab Data Result diagrams: 07/09/21 01:55 07/09/21 01:55 Labs: Lab Results 07/09/21 07/09/21 07/09/21 Range/Units 01:50 01:55 01:55 WBC 7.7 (4.5-11.0) X10^3/uL RBC 3.15 L (4.5-5.9) X10^6/uL Hgb 10.6 L (13.5-17.5) g/dL Hct 31.4 L (41-53) % MCV 99.5 (80-100) fL MCH 33.6 (26-34) PG MCHC 33.8 (30-36) % RDW 13.9 (11.6-14.8) % Plt Count 223 (150-400) X10^3/uL Neut % (Auto) 64.4 (50-75) % Lymph % (Auto) 17.8 L (25-40) % [place] % (Auto) 7.3 (3-14) % Eos % (Auto) 9.8 H (2-4) % Baso % (Auto) 0.7 (0-2) % Neut # (Auto) 4900 (3186-2948) /uL Lymph # (Auto) 1400 (0707-2643) /uL [place] # (Auto) 600 (0-900) /uL Eos # (Auto) 700 H (0-450) /uL Baso # (Auto) 100 (0-100) /uL Sodium 134 L (137-145) mmol/L Potassium 3.2 L (3.4-5.1) mmol/L Chloride 101 (98-107) mmol/L Carbon Dioxide 26 (22-32) mmol/L BUN 10 (9-20) mg/dL Creatinine 1.35 H (0.66-1.25) mg/dL Estimated GFR 51.7 L (>60) mL/min BUN/Creatinine Ratio 7.4 (6-22) Glucose 110 (80-110) mg/dL Calcium 9.5 (8.4-10.2) mg/dL Urine Color Red Urine Appearance Clear Urine pH 8.0 (4.5-8.0) Ur Specific [place] 1.010 (1.000-1.035) Urine Protein 2+ H (Negative) Urine Glucose (UA) Negative (Negative) g/dL Urine Ketones Negative (NEGATIVE) Urine Occult Blood 3+ H (Negative) Urine Nitrate Negative (Negative) Urine Bilirubin Negative (NEGATIVE) Urine Urobilinogen 0.2 (0.2) E.U./dL Ur Leukocyte Esterase Negative (NEGATIVE) Urine RBC >100/hpf H (0-5/HPF) Urine WBC 0-1/hpf (0-5/HPF) Ur Squamous Epith Cells 0-1 /hpf (0-5/HPF) Urine Bacteria Occasional (0-1) (None) Ur Culture Indicated? Cult not indicated Imaging Data CT scan - abdomen/pelvis: Radiologist's Impression: Bladder wall thickening suggesting cystitis. Status post transurethral resection of prostate procedure. Will order live ureter nauseated left renal pelvis and minimal left calyceal distention. No obstructing UTI stone. Bilateral pleural effusions. Other chronic findings as above. MDM Narrative Medical decision making narrative: This is a 76-year-old male who comes emergency department with complaint of urinary retention and bloody urine when able to urinate. Patient had approximately L after Clark catheter placed. Hemoglobin is 10 and last prior was 13.6 in 12/27/20. Patient is hypertensive here and has not been tachycardic hemodynamically unstable. Patient has a slight decrease in his potassium, creatinine is bumped up at 1.35 as well with comparison noted January that was 0.86. UA is negative with blood but negative for nitrates, no leukocyte esterase and only [address] shows bladder thickening, dilated left renal pelvis at 3.5 cm AP. Moderate left hydroureter. Her different fat stranding. Status post TURP. Small to moderate bilateral pleural effusion with mild passive atelectasis. Case was discussed with Dr. Hernandez, including labs, CT changes. Recommend to continue Septra for 5 additional days, patient has follow-up in the next [address] Hernandez. Also discussed these findings with the patient who will contact his primary care's he has recently had outpatient labs to evaluate his hemoglobin, we discussed that this could also be bleeding that occurred intraoperatively as he has been hypertensive here in the department and I suspect that he has not dropped his hemoglobin 3 g tonight. As he is not tachycardic. Patient urine is still draining red but is lightening in color without any clots. We did review CT findings as well as his labs in all questions were answered. Discharge Plan Departure Patient Disposition: Home Clinical Impression: Acute urinary retention, Hematuria, S/P TURP Activity Restrictions/Additional Instructions: Follow up with Dr. Hernandez at your appointment tomorrow on SaturdayJuly 10. Your hemoglobin is 10.6, discussed with your primary care physician what your most recent level was as the last I have for comparison was 13.6 in December of 2020. You may continue your home medications as prescribed. Dr. Hernandez does recommend that you continue your antibiotic and a prescription was sent to [facility] in [place]. You can continue home medications as prescribed but I would hold your aspirin until you see Dr. Hernandez. Please return for fevers, new or worsening abdominal, back or flank pain, nausea vomiting, if your catheter is not draining urine, if there is clots the not allowing it to drain or your having decreasing output. Prescriptions: New sulfamethoxazole-trimethoprim [Bactrim DS] 800-160 mg tablet 1 tab PO Q12H Qty: 10 RF: 0 No Action hydrocodone-acetaminophen 5 MG/325 MG tablet 1 tab PO Q6HP PRN (Reason: Pain) RF: 0 sulfamethoxazole-trimethoprim [Bactrim] 400-80 mg tablet 1 tab PO BID Qty: 10 RF: 0 hydrochlorothiazide 12.5 mg capsule 12.5 mg PO DAILY RF: 0 propranolol 10 mg tablet 10 mg PO BID RF: 0 alprazolam [Xanax XR] 0.5 mg tablet extended release 24 hr 0.5 mg PO DAILY RF: 0 Referrals: Mao Hernandez MD [Physician] - Adam Spears MD [Primary Care Provider] -
[2021-07-09] MEDS: LIDOCAINE 2% (GLYDO) 6 ML GEL TOP (02:05)
[2021-07-09 02:07] LABS: Appearance Urine UA CLEAR; Bilirubin Urine UA NEGATIVE (NEGATIVE); Color Urine UA RED; Glucose Urine UA NEGATIVE (Negative); Ketones Urine UA NEGATIVE (NEGATIVE); Leukocyte Esterase Urine UA NEGATIVE (NEGATIVE); Nitrite Urine UA NEGATIVE (Negative); Occult Blood Urine UA 3+ (Negative); Protein Urine UA 2+ (Negative); Urobilinogen Urine UA 0.2 E.U./dL (0.2)
[2021-07-09 02:11] LABS: BUN Creatinine Ratio 7.4 (6-22); Blood Urea Nitrogen 10 mg/dL (9-20); Calcium 9.5 mg/dL (8.4-10.2); Carbon Dioxide 26 mmol/L (22-32); Chloride 101 mmol/L (98-107); Estimated Glomerular Filt Rate 51.7 mL/min (>60); Glucose 110 mg/dL (80-110); HEMOLYSIS < 15 (0-50); Potassium 3.2 mmol/L (3.4-5.1); Sodium 134 mmol/L (137-145)
[2021-07-09 02:11] LABS: RBC Urine >100/HPF (0-5/HPF); Squamous Epithelial Cell Urine 0-1 /HPF (0-5/HPF); WBC Urine 0-1/HPF (0-5/HPF)
[2021-07-09 02:12] LABS: Bacteria Urine Occasional (0-1); Culture Indicated Urine Cult Not Indicated
[2021-07-09 02:13] LABS: Add Manual Diff / Slide Review NO; Basophils Absolute Auto 100 /uL (0-100); Basophils Percent Auto 0.7 % (0-2); Eosinophils Absolute Auto 700 /uL (0-450); Eosinophils Percent Auto 9.8 % (2-4); Hematocrit 31.4 % (41-53); Hemoglobin 10.6 g/dL (13.5-17.5); Lymphocytes Absolute Auto 1400 /uL (1100-4500); Lymphocytes Percent Auto 17.8 % (25-40); Mean Corpuscular HGB Conc 33.8 % (30-36); Mean Corpuscular Hemoglobin 33.6 PG (26-34); Mean Corpuscular Volume 99.5 fL (80-100); Monocytes Absolute Auto 600 /uL (0-900); Monocytes Percent Auto 7.3 % (3-14); Neutrophils Absolute Auto 4900 /uL (1500-7000); Neutrophils Percent Auto 64.4 % (50-75); Platelet Count 223 X10^3/uL (150-400); Red Blood Cell Count 3.15 X10^6/uL (4.5-5.9); Red Cell Distribution Width 13.9 % (11.6-14.8); White Blood Cell Count 7.7 X10^3/uL (4.5-11.0)
--- NOTE | 2021-07-09 02:15 | DI.CT.S_ITS ---
PROCEDURE: CT KIDNEY URETER BLADDER (KUB) INDICATIONS: hematuria, urinary retention, s/p TURP 6 days ago. TECHNIQUE: Axial sections were acquired from the lung bases to the pubic symphysis. Coronal and sagittal reformats were performed. For radiation dose reduction, the following was used: automated exposure control, adjustment of mA and/or kV according to patient size. COMPARISON: [facility], CR, XR LUMBAR SPINE 2-3V, 11/26/2020, 9:05. [facility], CT, CT ABDOMEN PELVIS W CON, 01/19/2021, 8:58. FINDINGS: Image quality: Excellent. Lung bases: Small bilateral pleural effusions are seen, right larger than left. Heart: No significant findings. URINARY: Right Kidney: No stones or hydronephrosis. Right Ureter: No hydroureter. Left Kidney: No stones are seen. There is moderate left-sided hydronephrosis. Left Ureter: There is moderate left-sided hydroureter. No obstructing stones are seen. Bladder: A Clark catheter is seen, which decompresses the bladder. The urinary bladder demonstrates a circumferentially thickened wall. A small amount of fluid can be seen adjacent to the bladder on the right, as on series 2, image 61, which is likely related to the previously seen bladder diverticulum. ABDOMEN: Liver: Unremarkable. Gallbladder: Unremarkable. Biliary ducts: Unremarkable. Pancreas: Unremarkable. Spleen: Unremarkable. Adrenal Glands: Unremarkable. Stomach and Bowel: Stomach, small bowel loops, and colon are unremarkable. A normal appendix is incidentally noted. Mild distal colonic diverticulosis is seen, without findings active diverticulitis. Peritoneum: No abnormal intraperitoneal fluid. No free air. Ventral Wall: No hernia. Abdominal Nodes: No enlarged retroperitoneal or mesenteric lymph nodes. Vessels: Aorta and inferior vena cava are normal in size. PELVIS: Pelvic Organs: Prostatectomy change is seen. Pelvic Nodes: Unremarkable. Miscellaneous: There is a mild fat containing left inguinal hernia. Bones: There is a T12 compression deformity seen, which is worse than on the 11/18/2021 study, now with 60% loss of height centrally. There is again seen approximately 2 mm posterior displacement of fracture fragments. Degenerative changes are seen throughout, including at least moderate disc space narrowing at L5-S1. Vacuum disc phenomenon is seen at this level. IMPRESSION: Prostatectomy change. Clark catheter seen, with circumferential bladder wall thickening. Please correlate for cystitis. Moderate left-sided hydroureter and hydronephrosis can be seen. No kidney stones or ureteral stones are seen. Small bilateral pleural effusions are seen, right worse than left. Interval progression of the T12 fracture. If it would be helpful for clinical management decision making, please consider a dedicated lumbar spine MRI (without and with contrast) for further evaluation (assuming that there is no contraindication). Incidental note is made of: Normal appendix Mild distal colonic diverticulosis, without diverticulitis. Note: No significant discrepancy from the preliminary report. Dictated by: William Reese M.D. on 07/09/2021 at 7:05 Approved by: William Reese M.D. on 07/09/2021 at 7:13
== END 2021-07-09 03:58 | disposition home or self-care (01) ==
PROVIDERS: Emergency Provider Emergency Medicine; PCP Internal Medicine
DX: R33.8 Other retention of urine (principal); R31.9 Hematuria, unspecified; Z90.79 Acquired absence of other genital organ(s)
CPT/HCPCS: 36415; 51702; 51798; 74176; 80048; 81001; 85025; 99284

== ENCOUNTER → 2021-08-21 12:22 | Outpatient (CLI) | payer OTHER, SELFPAY ==
[2021-07-06 16:27] VITALS: BMI 22.2
[2021-08-21 15:09] LABS: Prostate Specific Antigen 1.07 ng/mL (0.10-4.00)
== END ==
PROVIDERS: PCP Internal Medicine; Referring Provider Specialist; Visit Provider Specialist
DX: N40.1 Benign prostatic hyperplasia with lower urinary tract symptoms (principal); N13.8 Other obstructive and reflux uropathy
CPT/HCPCS: 36415; 84153

== ENCOUNTER → 2021-08-23 08:30 | Outpatient (CLI) | payer OTHER, SELFPAY ==
[2021-07-06 16:27] VITALS: BMI 22.2
== END ==
PROVIDERS: PCP Internal Medicine; Visit Provider Specialist
DX: N39.0 Urinary tract infection, site not specified (principal); N32.3 Diverticulum of bladder; R33.9 Retention of urine, unspecified
CPT/HCPCS: 51798; 81002; 87086; 99214

== ENCOUNTER → 2022-03-29 12:54 | Outpatient (CLI) | payer MEDICARE, SELFPAY ==
[2021-08-23 08:58] VITALS: BMI 22.2
[2022-03-29 13:15] LABS: Hematocrit 41.3 % (41-53); Hemoglobin 13.6 g/dL (13.5-17.5); Mean Corpuscular HGB Conc 32.9 % (30-36); Mean Corpuscular Hemoglobin 32.1 PG (26-34); Mean Corpuscular Volume 97.7 fL (80-100); Platelet Count 227 X10^3/uL (150-400); Red Blood Cell Count 4.23 X10^6/uL (4.5-5.9); Red Cell Distribution Width 13.9 % (11.6-14.8); White Blood Cell Count 6.6 X10^3/uL (4.5-11.0)
[2022-03-29 13:35] LABS: Alanine Aminotransferase 20 IU/L (<50); Albumin 4.3 g/dL (3.5-5.0); Alkaline Phosphatase 66 U/L (38-126); Aspartate Aminotransferase 28 IU/L (17-59); Bilirubin Total 0.5 mg/dL (0.2-1.3); Blood Urea Nitrogen 12 mg/dL (9-20); Calcium 9.5 mg/dL (8.4-10.2); Carbon Dioxide 32 mmol/L (22-32); Chloride 105 mmol/L (98-107); Estimated Glomerular Filt Rate > 60 mL/min (>60); Glucose 96 mg/dL (80-110); Potassium 4.3 mmol/L (3.4-5.1); Sodium 141 mmol/L (137-145); Total Protein 7.7 g/dL (6.3-8.2)
[2022-03-29 13:36] LABS: Albumin Globulin Ratio 1.3 (1.0-2.8); Cholesterol 224 mg/dL (140-199); Globulin 3.4 g/dL (1.7-4.1); HEMOLYSIS < 15 (0-50); Triglycerides 75 mg/dL (35-150)
[2022-03-29 13:48] LABS: HDL Cholesterol 140 mg/dL (40-60); LDL Cholesterol Calculated 69 mg/dL (<100)
[2022-03-29 14:01] LABS: Prostate Specific Antigen 0.437 ng/mL (0.10-4.00)
[2022-03-29 15:26] LABS: TSH w/ Reflex to FT4 3.87 uIU/mL (0.47-4.68)
== END ==
PROVIDERS: PCP Internal Medicine; Referring Provider Internal Medicine; Visit Provider Internal Medicine
DX: I10 Essential (primary) hypertension (principal); N40.1 Benign prostatic hyperplasia with lower urinary tract symptoms; K74.60 Unspecified cirrhosis of liver; N13.8 Other obstructive and reflux uropathy
CPT/HCPCS: 36415; 80053; 80061; 84153; 84443; 85027

== ENCOUNTER → 2023-01-09 09:48 | Outpatient (CLI) | payer MEDICARE, SELFPAY ==
[2021-08-23 08:58] VITALS: BMI 22.2
[2023-01-09 12:01] LABS: Hemoglobin 14.4 g/dL (13.5-17.5); Mean Corpuscular HGB Conc 33.5 % (30-36); Mean Corpuscular Hemoglobin 33.8 PG (26-34); Mean Corpuscular Volume 100.7 fL (80-100); Platelet Count 232 X10^3/uL (150-400); Red Blood Cell Count 4.27 X10^6/uL (4.5-5.9); Red Cell Distribution Width 13.3 % (11.6-14.8); White Blood Cell Count 7.6 X10^3/uL (4.5-11.0)
[2023-01-09 12:39] LABS: Alanine Aminotransferase 20 IU/L (<50); Albumin 4.4 g/dL (3.5-5.0); Albumin Globulin Ratio 1.4 (1.0-2.8); Alkaline Phosphatase 80 U/L (38-126); Aspartate Aminotransferase 26 IU/L (17-59); BUN Creatinine Ratio 23.2 (6-22); Bilirubin Total 0.7 mg/dL (0.2-1.3); Blood Urea Nitrogen 22 mg/dL (9-20); Calcium 9.7 mg/dL (8.4-10.2); Carbon Dioxide 31 mmol/L (22-32); Chloride 98 mmol/L (98-107); Estimated Glomerular Filt Rate > 60 mL/min (>60); Globulin 3.2 g/dL (1.7-4.1); Glucose 95 mg/dL (80-110); HEMOLYSIS < 15 (0-50); Potassium 3.6 mmol/L (3.4-5.1); Sodium 139 mmol/L (137-145); Total Protein 7.6 g/dL (6.3-8.2)
== END ==
PROVIDERS: PCP Internal Medicine; Referring Provider Internal Medicine; Visit Provider Internal Medicine
DX: I87.2 Venous insufficiency (chronic) (peripheral) (principal); K70.30 Alcoholic cirrhosis of liver without ascites
CPT/HCPCS: 36415; 80053; 85027

== ENCOUNTER → 2023-03-18 10:33 | Outpatient (CLI) | payer MEDICARE, SELFPAY ==
[2021-08-23 08:58] VITALS: BMI 22.2
[2023-03-18 12:38] LABS: Prostate Specific Antigen 0.373 ng/mL (0.10-4.00)
== END ==
PROVIDERS: PCP Internal Medicine; Referring Provider Specialist; Visit Provider Specialist
DX: N40.1 Benign prostatic hyperplasia with lower urinary tract symptoms (principal); N13.8 Other obstructive and reflux uropathy
CPT/HCPCS: 36415; 84153

== ENCOUNTER → 2023-06-19 09:38 | Outpatient (CLI) | payer MEDICARE, SELFPAY ==
[2021-08-23 08:58] VITALS: BMI 22.2
[2023-06-19 11:24] LABS: Clostridium Difficile Tox PCR Negative for C. diff (Negative)
== END ==
PROVIDERS: PCP Internal Medicine; Referring Provider Internal Medicine; Visit Provider Internal Medicine
DX: R19.7 Diarrhea, unspecified (principal)
CPT/HCPCS: 87493

== ENCOUNTER → 2023-07-26 | Outpatient (CLI) | payer MEDICARE, SELFPAY ==
[2021-08-23 08:58] VITALS: BMI 22.2
--- NOTE | 2023-07-26 09:44 | DI.RAD.S_ITS ---
PROCEDURE: XR DEXA AXIAL SKELETON INDICATIONS: cirrhosis and history of T12 compression fracture COMPARISON: None. FINDINGS: This blank DEXA report has been sent in error by the PACS system. The correct and complete report will be forthcoming in 1-2 days. Thank you for your patience and understanding. Dictated by: Philippe Cervantes M.D. on 07/26/2023 at 13:05 Approved by: Philippe Cervantes M.D. on 07/26/2023 at 13:05
--- NOTE | 2023-07-26 09:56 | DI.DEXA.S_ITS ---
Bone Density Report Name: GINA VANESSA Age: 78 Sex: Male Ethnicity: White Date of : 1945 Indication: screening for osteoporosis; prior fracture; Referring Provider: SOWMYA HOLT Study: Bone densitometry was performed. Exam Date: July 26, 2023 Accession number: [id number] Bone Density: Region BMD T-score Z-score Classification AP Spine(L1-L4) 0.983 -0.6 0.1 Normal Femoral Neck (Left) 0.646 -1.8 -0.7 Osteopenia Total Hip (Left) 0.809 -1.1 -0.6 Osteopenia Femoral Neck (Right) 0.646 -1.8 -0.7 Osteopenia Total Hip (Right) 0.834 -0.9 -0.4 Normal Total Hip Mean 0.822 -1.0 -0.5 Normal World Health Organization criteria for BMD impression classify patients as: Normal (T-score at or above -1.0), Osteopenia (T-score between -1.0 and -2.5), or Osteoporosis (T-score at or below -2.5). 10-year Fracture Risk: FRAX not reported because: Prior hip or vertebral fracture Impression: The patient has low bone mass, based on the Left Femoral Neck T-score. The patient has risk factors, including: previous fracture. Discussion: INCREASED RISK OF FRACTURE DUE TO HISTORY OF LOW TRAUMA FRACTURE. The patient's previous fracture puts the patient at high risk of a future fracture. In untreated patients, the risk of osteoporotic fracture increases approximately two-fold for each 1.0 SD decrease in T-score. Low bone density is not the only risk factor for fracture; also consider factors such as patient's age, frailty or poor health, risk of falling, risk of injury, previous osteoporotic fracture, family history of osteoporosis, cigarette smoking, low body weight, etc. Not everyone with a low trauma fracture has osteoporosis; osteomalacia and other metabolic bone disorders should also be considered. Patients who have osteoporosis should be evaluated for specific diseases and conditions (secondary causes) that may cause or contribute to bone loss and fracture risk. National Osteoporosis Foundation (NOF) recommends pharmacologic intervention for patients with a prior low trauma hip or vertebral fracture regardless of BMD T-score. The patient should follow a healthful lifestyle (good nutrition with adequate calcium and vitamin D, and appropriate weight-bearing exercise). Follow-Up: Consider a repeat BMD and Vertebral Fracture Assessment (VFA) exam in 2 years or sooner if medically necessary, to reassess this patient's status. Reported by: HUNG MUÑOZ M.D. on 07/30/2023 1:04:00 PM.
== END ==
LOC: RAD 09:44
PROVIDERS: PCP Internal Medicine; Referring Provider Internal Medicine; Visit Provider Internal Medicine
DX: M85.89 Other specified disorders of bone density and structure, multiple sites (principal); Z13.820 Encounter for screening for osteoporosis; Z87.311 Personal history of (healed) other pathological fracture
CPT/HCPCS: 77080

== ENCOUNTER → 2023-10-21 10:04 | Outpatient (CLI) | payer MEDICARE, SELFPAY ==
[2021-08-23 08:58] VITALS: BMI 22.2
--- NOTE | 2023-10-21 | DI.US.S_ITS ---
PROCEDURE: US ABDOMEN LIMITED INDICATIONS: Unspecified cirrhosis of liver TECHNIQUE: Real-time scanning was performed of the abdominal and retroperitoneal organs, with image documentation. COMPARISON: None. FINDINGS: Liver: Liver is mildly increased in echotexture. The liver echotexture is not heterogeneous are coarsened. The liver is normal size at 14.9 centimeters. Gallbladder: Within normal limits. No gallstones or gallbladder wall thickening. Biliary ducts: Intrahepatic bile ducts are non-dilated. Extrahepatic bile duct caliber measures 5.2 mm. Normal is 6-7 mm or less in diameter, or 10 mm or less post-cholecystectomy. Pancreas: Visualized portions of the pancreas are sonographically normal. IMPRESSION: No sonographic evidence of cirrhosis. Increased hepatic echogenicity, likely related to hepatic steatosis but other sources of hepatocellular disease are not excluded. Recommend clinical correlation. Dictated by: Philippe Cervantes M.D. on 10/21/2023 at 14:06 Approved by: Philippe Cervantes M.D. on 10/21/2023 at 14:10
[2023-10-21 10:49] LABS: Add Manual Diff / Slide Review NO; Basophils Absolute Auto 0 /uL (0-100); Basophils Percent Auto 0.2 % (0-2); Eosinophils Absolute Auto 200 /uL (0-450); Eosinophils Percent Auto 2.7 % (2-4); Hematocrit 41.9 % (41-53); Hemoglobin 14.3 g/dL (13.5-17.5); Lymphocytes Absolute Auto 2200 /uL (1100-4500); Lymphocytes Percent Auto 31.2 % (25-40); Mean Corpuscular HGB Conc 34.1 % (30-36); Mean Corpuscular Hemoglobin 32.9 PG (26-34); Mean Corpuscular Volume 96.4 fL (80-100); Monocytes Absolute Auto 500 /uL (0-900); Monocytes Percent Auto 7.8 % (3-14); Neutrophils Absolute Auto 4100 /uL (1500-7000); Neutrophils Percent Auto 58.1 % (50-75); Platelet Count 245 X10^3/uL (150-400); Red Blood Cell Count 4.35 X10^6/uL (4.5-5.9); Red Cell Distribution Width 13.1 % (11.6-14.8)
[2023-10-21 11:12] LABS: Alanine Aminotransferase 22 IU/L (<50); Albumin 4.2 g/dL (3.5-5.0); Albumin Globulin Ratio 1.2 (1.0-2.8); Alkaline Phosphatase 58 U/L (38-126); Aspartate Aminotransferase 24 IU/L (17-59); BUN Creatinine Ratio 17.7 (6-22); Bilirubin Total 0.9 mg/dL (0.2-1.3); Blood Urea Nitrogen 20 mg/dL (9-20); Calcium 10.1 mg/dL (8.4-10.2); Carbon Dioxide 27 mmol/L (22-32); Chloride 101 mmol/L (98-107); Estimated Glomerular Filt Rate > 60 mL/min (>60); Globulin 3.4 g/dL (1.7-4.1); Glucose 106 mg/dL (80-110); HEMOLYSIS < 15 (0-50); Sodium 139 mmol/L (137-145); Total Protein 7.6 g/dL (6.3-8.2)
[2023-10-21 11:25] LABS: Prothrombin Time 11.7 SECONDS (10.1-12.7)
[2023-10-21 17:22] LABS: Hep C Virus Ab w/Reflex Quant NEGATIVE s/c (NEGATIVE); Hepatitis B Surface Antigen NEGATIVE s/c (NEGATIVE)
[2023-10-22 04:53] LABS: Hepatitis A Antibody Total Positive (Negative)
[2023-10-22 08:08] LABS: Alpha Fetoprotein 1.8 ng/mL (0.0-8.4)
[2023-10-23 02:36] LABS: Hepatitis B Surf Ab Qualitativ Non Reactive (.)
== END ==
PROVIDERS: PCP Internal Medicine; Referring Provider Internal Medicine Gastroenterology; Visit Provider Internal Medicine Gastroenterology
DX: K74.60 Unspecified cirrhosis of liver (principal); Z86.010 Personal history of colon polyps
CPT/HCPCS: 36415; 76705; 80053; 82105; 85025; 85610; 86706; 86708; 86803; 87340

== ENCOUNTER → 2024-03-11 14:16 | Outpatient (CLI) | payer MEDICARE, SELFPAY ==
[2021-08-23 08:58] VITALS: BMI 22.2
[2024-03-12 11:32] LABS: Prostate Specific Antigen 0.713 ng/mL (0.10-4.00)
== END ==
LOC: LAB 14:17
PROVIDERS: PCP Internal Medicine; Referring Provider Specialist; Visit Provider Specialist
DX: N40.1 Benign prostatic hyperplasia with lower urinary tract symptoms (principal); N13.8 Other obstructive and reflux uropathy
CPT/HCPCS: 84153

== ENCOUNTER → 2024-07-29 09:52 | Outpatient (CLI) | payer MEDICARE, SELFPAY ==
[2021-08-23 08:58] VITALS: BMI 22.2
[2024-07-29 10:54] LABS: Hematocrit 41.5 % (41-53); Hemoglobin 14.4 g/dL (13.5-17.5); Mean Corpuscular HGB Conc 34.6 % (30-36); Mean Corpuscular Hemoglobin 34.1 PG (26-34); Mean Corpuscular Volume 98.7 fL (80-100); Platelet Count 199 X10^3/uL (150-400); Red Blood Cell Count 4.21 X10^6/uL (4.5-5.9); Red Cell Distribution Width 13.9 % (11.6-14.8); White Blood Cell Count 6.3 X10^3/uL (4.5-11.0)
[2024-07-29 11:10] LABS: Alanine Aminotransferase 19 IU/L (<50); Albumin 4.4 g/dL (3.5-5.0); Albumin Globulin Ratio 1.5 (1.0-2.8); Alkaline Phosphatase 66 U/L (38-126); Aspartate Aminotransferase 29 IU/L (17-59); BUN Creatinine Ratio 17.5 (6-22); Blood Urea Nitrogen 17 mg/dL (9-20); Calcium 9.6 mg/dL (8.4-10.2); Carbon Dioxide 26 mmol/L (22-32); Chloride 97 mmol/L (98-107); Cholesterol 218 mg/dL (140-199); Estimated Glomerular Filt Rate > 60 mL/min (>60); Glucose 98 mg/dL (80-110); Potassium 3.1 mmol/L (3.4-5.1); Sodium 134 mmol/L (137-145); Total Protein 7.4 g/dL (6.3-8.2); Triglycerides 56 mg/dL (35-150)
[2024-07-29 11:17] LABS: HEMOLYSIS 29 (0-50)
[2024-07-29 11:41] LABS: HDL Cholesterol 121 mg/dL (40-60); LDL Cholesterol Calculated 86 mg/dL (<100)
== END ==
PROVIDERS: PCP Internal Medicine; Referring Provider Internal Medicine; Visit Provider Internal Medicine
DX: E78.2 Mixed hyperlipidemia (principal); K74.60 Unspecified cirrhosis of liver
CPT/HCPCS: 36415; 80053; 80061; 85027

== ENCOUNTER → 2025-02-09 12:20 | Outpatient (CLI) | payer MEDICARE, SELFPAY ==
[2021-08-23 08:58] VITALS: BMI 22.2
--- NOTE | 2025-02-09 12:21 | DI.RAD.S_ITS ---
PROCEDURE: XR CHEST 2V INDICATIONS: cough, fever TECHNIQUE: 2 views of the chest were acquired. COMPARISON: None. FINDINGS: Heart, mediastinum and pulmonary vascular: Heart is normal in size and configuration. Mediastinum is unremarkable. Pulmonary vascular is normal. Lungs: Moderate , yet vague, infiltrate is seen in the posterior right lower lobe. There may be a tiny right pleural effusion Bones and soft tissues: Moderate T12 compression fracture appreciated there is minimal chronic wedging upper midthoracic spine IMPRESSION: Moderate right lower lobe pneumonia. Moderate T12 compression fracture age indeterminate . minimal chronic wedging upper midthoracic spine Dictated by: Pablo Tejeda M.D. on 02/10/2025 at 10:47 Approved by: Pablo Tejeda M.D. on 02/10/2025 at 10:49
== END ==
PROVIDERS: PCP Internal Medicine; Referring Provider Internal Medicine; Visit Provider Internal Medicine
DX: J10.00 Influenza due to other identified influenza virus with unspecified type of pneumonia (principal); M48.54XA Collapsed vertebra, not elsewhere classified, thoracic region, initial encounter for fracture
CPT/HCPCS: 71046

== ENCOUNTER → 2025-03-12 09:59 | Outpatient (CLI) | payer MEDICARE, SELFPAY ==
[2021-08-23 08:58] VITALS: BMI 22.2
[2025-03-12 11:45] LABS: Prostate Specific Antigen 0.541 ng/mL (0.10-4.00)
== END ==
PROVIDERS: PCP Internal Medicine; Referring Provider Urology; Visit Provider Urology
DX: R39.9 Unspecified symptoms and signs involving the genitourinary system (principal); Z87.898 Personal history of other specified conditions
CPT/HCPCS: 36415; 84153

== ENCOUNTER → 2025-09-15 14:01 | Outpatient (CLI) | payer MEDICARE, SELFPAY ==
[2021-08-23 08:58] VITALS: BMI 22.2
[2025-09-15 14:49] LABS: Hematocrit 41.7 % (41-53); Hemoglobin 14.2 g/dL (13.5-17.5); Mean Corpuscular HGB Conc 34.1 % (30-36); Mean Corpuscular Hemoglobin 33.4 PG (26-34); Mean Corpuscular Volume 98.0 fL (80-100); Platelet Count 213 X10^3/uL (150-400)
[2025-09-15 15:22] LABS: Alanine Aminotransferase 20 IU/L (<50); Albumin 4.4 g/dL (3.5-5.0); Albumin Globulin Ratio 1.5 (1.0-2.8); Alkaline Phosphatase 63 U/L (38-126); Blood Urea Nitrogen 18 mg/dL (9-20); Calcium 9.7 mg/dL (8.4-10.2); Carbon Dioxide 29 mmol/L (22-32); Chloride 97 mmol/L (98-107); Cholesterol 221 mg/dL (140-199); Estimated Glomerular Filt Rate > 60 mL/min (>60); Globulin 3.0 g/dL (1.7-4.1); Glucose 110 mg/dL (70-99); HEMOLYSIS < 15 (0-50); Magnesium 1.5 mg/dL (1.6-2.3); Potassium 3.5 mmol/L (3.4-5.1); Sodium 135 mmol/L (137-145); Total Protein 7.4 g/dL (6.3-8.2); Triglycerides 55 mg/dL (35-150)
[2025-09-15 15:33] LABS: HDL Cholesterol 163 mg/dL (40-60)
[2025-09-15 15:41] LABS: INR 1.0 (0.9-1.3); Prothrombin Time 11.0 SECONDS (9.4-12.5)
== END ==
PROVIDERS: PCP Internal Medicine; Referring Provider Internal Medicine; Visit Provider Internal Medicine
DX: K70.30 Alcoholic cirrhosis of liver without ascites (principal); I10 Essential (primary) hypertension; E78.2 Mixed hyperlipidemia; E61.2 Magnesium deficiency
CPT/HCPCS: 36415; 80053; 80061; 82105; 83735; 85027; 85610

== ENCOUNTER → 2025-09-30 09:37 | Outpatient (CLI) | payer MEDICARE, SELFPAY ==
[2021-08-23 08:58] VITALS: BMI 22.2
== END ==
LOC: CAR 09:38
PROVIDERS: PCP Internal Medicine; Referring Provider Internal Medicine; Visit Provider Internal Medicine
DX: R00.2 Palpitations (principal)
CPT/HCPCS: 93246